=== PATIENT | male | born 1980 | race Caucasian/White ===

== ENCOUNTER 2024-03-11 07:34 | Outpatient (CLI) | payer BC, OTHER, SELFPAY ==
--- NOTE | ~2024-03-11 | XR_ITS ---
EXAMINATION: XR lumbar spine 6V w bending DATE: 03/11/2024 08:38 INDICATION: Postlaminectomy syndrome. Low back pain. TECHNIQUE: 6 views of lumbar spine including standing and flexion and extension views were obtained. COMPARISON: Lumbar spine MRI 03/11/2024 FINDINGS: There is 6 degrees levocurvature of lumbar spine. There is 3 mm retrolisthesis of L3 on L4 and L4 on L5. This finding is hypomobile with flexion and extension. There is mild chronic anterior w edging of T12 and L1 vertebral bodies. There is moderately decreased disc height at L3-L4, severely d ecreased disc height at L4-L5, and mildly decreased disc height at L5-S1. There is multilevel facet j oint osteoarthritis, severe in lower lumbar spine. IMPRESSION: 1. Severe lumbar spondylosis. Reviewed, dictated and finalized at location A.
--- NOTE | ~2024-03-11 | MR_ITS ---
EXAMINATION: MR lumbar spine wo con DATE: 03/11/2024 08:28 INDICATION: Dorsalgia and right lower limb pain. TECHNIQUE: Magnetic resonance imaging (MRI) of the lumbar spine was performed without intravenous con trast. Sequences included sagittal T2-weighted FSE, sagittal T2-weighted FS FSE, sagittal T1-weighted FSE, and axial T2-weighted FSE. COMPARISON: None FINDINGS: 1-2 mm retrolisthesis L2 on L3 and L3 on L4. 4 mm retrolisthesis L5 on L5 and L5 on S1. Minimal likel y physiologic anterior wedging at T12 and L1. Remaining lumbar vertebral body heights are normal. Mil d disc desiccation and minimal disc height loss at L2-L3. Moderate disc height loss at L3-L4 and L5-S 1. Moderate to severe disc height loss with anterior fibrovascular degenerative endplate changes at L 4-L5. There are annular fissures at each of these levels. Marrow signal is otherwise normal. The conu s medullaris terminates at L1. There is normal signal in the caudal spinal cord. Postoperative change of prior right L4-L5 hemilaminotomy. Paravertebral soft tissues are otherwise unremarkable. The foll owing disc levels are specifically discussed: T12-L1: The disc does not extend beyond the endplate margin. There is mild bilateral facet joint oste oarthritis. There is no neural foraminal stenosis. There is no central canal stenosis. L1-L2: Mild left foraminal zone disc protrusion. There is mild bilateral facet joint osteoarthritis. There is mild left neural foraminal stenosis. There is no central canal stenosis. L2-L3: Disc is mildly bulging with superimposed annular fissure and small central disc extrusion with disc material extending 3 mm caudal to the level of the superior endplate of L3.. There is mild bila teral facet joint osteoarthritis. There is mild bilateral neural foraminal stenosis. There is mild ce ntral canal stenosis. L3-L4: Disc is bulging with superimposed annular fissure and central disc extrusion with disc materia l extending up to 6 mm caudal to the level of the superior endplate of L4. There is mild bilateral fa cet joint osteoarthritis. There is moderate right and mild to moderate left neural foraminal stenosis . There is mild central canal stenosis. L4-L5: Disc is bulging with superimposed annular fissure and central disc extrusion with disc materia l extending up to 6 mm caudal to the level of the superior endplate of L5. There is mild to moderate bilateral facet joint osteoarthritis. Prior posterior decompression with right hemilaminotomy with re section of the right side of the ligamentum flavum. There is moderate bilateral neural foraminal sten osis. There is no central canal stenosis. L5-S1: Disc is bulging with superimposed annular fissure and relatively broad-based disc extrusion wh ich extends from foraminal zone to foraminal zone with disc material extending up to 7 mm caudal to t he level of the superior endplate of S1 centrally. There is mild to moderate bilateral facet joint os teoarthritis. There is moderate right and mild to moderate left neural foraminal stenosis. There is n o central canal stenosis. IMPRESSION: 1. Moderate to severe lumbar spondylosis with change of prior right L4-L5 hemilaminotomy. Reviewed, dictated and finalized at location B. IMPRESSION: 1. Moderate to severe lumbar spondylosis with change of prior right L4-L5 hemil aminotomy.
--- NOTE | ~2024-03-11 | XR_ITS ---
EXAMINATION: XR cervical spine 4-5V DATE: 03/11/2024 08:39 INDICATION: Neck pain. TECHNIQUE: 5 views of cervical spine including flexion and extension views were obtained. COMPARISON: None. FINDINGS: Bone alignment is normal. The lower cervical spine is hypomobile with flexion and extension . Vertebral body heights are normal. There is mildly decreased disc height at C5-C6. There is multile daquan mild uncovertebral joint osteoarthritis. There is mild facet joint osteoarthritis at C7-T1. No ce ntral canal stenosis or prevertebral soft tissue swelling. IMPRESSION: 1. Mild cervical spondylosis. Reviewed, dictated and finalized at location A.
--- NOTE | ~2024-03-11 | XR_ITS ---
EXAMINATION: XR hip BI 2V w AP pelvis DATE: 03/11/2024 08:38 INDICATION: Hip pain. TECHNIQUE: An anteroposterior view of the pelvis and 2 views of each hip were obtained. COMPARISON: None. FINDINGS: Bone alignment is normal. No fracture. There is moderate lumbar spondylosis. There is mild osteoarthritis of the hips. IMPRESSION: 1. Mild osteoarthritis of the hips. Reviewed, dictated and finalized at location A.
== END 2024-03-11 07:35 | disposition home or self-care (01) ==
PROVIDERS: PCP Internal Medicine; Visit Provider Anesthesiology Pain Medicine
DX: M96.1 Postlaminectomy syndrome, not elsewhere classified (principal); M79.12 Myalgia of auxiliary muscles, head and neck; M47.892 Other spondylosis, cervical region; M47.26 Other spondylosis with radiculopathy, lumbar region; M16.0 Bilateral primary osteoarthritis of hip
CPT/HCPCS: 72050; 72114; 72148; 73521

== ENCOUNTER 2025-06-14 09:50 | Outpatient (CLI) | payer OTHER, SELFPAY | END 2025-06-14 09:51 | disposition home or self-care (01) | PROVIDERS: PCP Nurse Practitioner; Visit Provider Nurse Practitioner | DX: M25.561 Pain in right knee (principal) | CPT/HCPCS: 73564 ==